=== PATIENT | male | born 1975 | race African-American/Black ===

== ENCOUNTER 2016-09-09 16:47 | Emergency (ER) | payer OTHER ==
[~2016-09-09] VITALS: Ht 175.3 cm; Wt 80.0 kg
[2016-09-09 19:04] VITALS: BP 135/80
== END 2016-09-09 19:08 | disposition home or self-care (01) ==
LOC: ED 16:56
DX: R60.9 Edema, unspecified (principal); M79.661 Pain in right lower leg; M25.571 Pain in right ankle and joints of right foot
CPT/HCPCS: 99284

== ENCOUNTER → 2016-09-17 | Outpatient (CLI) | payer OTHER | END | disposition home or self-care (01) | LOC: RAD 10:00 | PROVIDERS: ATTEND Student in an Organized Health Care Education/Training Program | DX: M25.471 Effusion, right ankle (principal) ==